=== PATIENT | male | born 1955 | race Caucasian/White ===

== ENCOUNTER 2017-09-07 08:36 | Inpatient (IN) | payer OTHER ==
[2017-09-07 10:39] VITALS: BMI 20.7
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
[2017-09-07] MEDS ORDERED: MAGNESIUM HYDROX 2400MG/30ML ORAL SUSPENSION 30 ML CUP PO PRN (15:18)
[2017-09-07] MEDS ORDERED: MAGNESIUM CITRATE 300 ML BOTTLE PO PRN (15:18)
[2017-09-07] MEDS ORDERED: IBUPROFEN 400 MG TABLET (FP) PO PRN (15:18)
[2017-09-07] MEDS ORDERED: guaiFENesin/D-METHORPHAN HB 10 ML UNIT-DOSE CUPS PO PRN (15:18)
[2017-09-07] MEDS ORDERED: P-EPHED 60MG/TRIPROLIDI 2.5MG TABLET PO PRN (15:18)
[2017-09-07] MEDS ORDERED: LOPERAMIDE HCL 2 MG CAPSULE PO PRN (15:18)
[2017-09-07] MEDS ORDERED: ACETAMINOPHEN 325 MG TABLET (FP) PO PRN (15:18)
[2017-09-07] MEDS ORDERED: MAG HYDROX/AL HYDROX/SIMETH 30 ML UNIT-DOSE CUP PO PRN (15:18)
[2017-09-07] MEDS ORDERED: MENTHOL/PHENOL 1 EACH UD MM PRN (15:18)
[2017-09-07] MEDS ORDERED: hydrOXYzine PAMOATE 25 MG CAPSULE (FP) PO PRN (15:18)
[2017-09-07] MEDS ORDERED: chlordiazePOXIDE HCL 25 MG CAPSULE PO PRN (15:18)
[2017-09-07] MEDS ORDERED: METHADONE HCL 10 MG TABLET (FOR DETOX USE ONLY) PO ONE ×2 (15:30→23:00)
[2017-09-07] MEDS ORDERED: chlordiazePOXIDE HCL 25 MG CAPSULE PO ONE (15:30)
[2017-09-07] MEDS: NICOTINE 21 MG/24 HOURS TOPICAL PATCH TD SCH (16:24)
[2017-09-07] MEDS: chlordiazePOXIDE HCL 25 MG CAPSULE PO SCH ×2 (16:25→22:19)
--- NOTE | 2017-09-07 17:09 | PN ---
[facility] Progress Note Note: Notified by BEATRIZ Sousa BP 165/90. Patient ordered clonidine 0.1mg BID but next dose due at 10pm. Will order Clonidine 0.1mg po now and continue to monitor clinically. Vital Signs Temperature 96.3 F L 09/07/17 16:02 Pulse Rate 62 09/07/17 16:02 Respiratory Rate 18 09/07/17 16:02 Blood Pressure 165/90 09/07/17 16:02 O2 Sat by Pulse Oximetry (%)
[2017-09-07] MEDS ORDERED: cloNIDine HCL 0.1 MG TABLET PO ONE (17:15)
[2017-09-07] MEDS: cloNIDine HCL 0.1 MG TABLET PO SCH (22:18)
[2017-09-07] MEDS: CYCLOBENZAPRINE HCL 10 MG TABLET (FP) PO PRN (22:18)
[2017-09-07] MEDS: THIAMINE HCL 100 MG TABLET (FP) PO SCH (22:18)
[2017-09-07 23:18] LABS: URINE APPEARANCE CLOUDY; URINE BILIRUBIN NEGATIVE (<2.0 mg/dL); URINE COLOR DKYELLOW; URINE GLUCOSE (UA) NEGATIVE (NEGATIVE); URINE KETONE NEGATIVE (NEGATIVE); URINE NITRITE NEGATIVE (NEGATIVE); URINE UROBILINOGEN NEGATIVE mg/dL (0.2-1.0)
[2017-09-07 23:24] LABS: URINE LEUK ESTERASE 2+ (NEGATIVE); URINE PROTEIN 1+ (NEGATIVE)
[2017-09-07 23:29] LABS: EPI CELLS RARE /HPF (FEW); URINE BACTERIA RARE /hpf (NONE SEEN); URINE MUCUS RARE
[2017-09-08] MEDS: chlordiazePOXIDE HCL 25 MG CAPSULE PO SCH ×4 (05:40→22:22)
--- NOTE | 2017-09-08 08:49 | EKG ---
Test Reason : Blood Pressure : / mmHG Vent. Rate : 064 BPM Atrial Rate : 064 BPM P-R Int : 140 ms QRS Dur : 090 ms QT Int : 416 ms P-R-T Axes : 051 -20 059 degrees QTc Int : 429 ms NORMAL SINUS RHYTHM CANNOT RULE OUT ANTERIOR INFARCT , AGE UNDETERMINED ABNORMAL ECG NO PREVIOUS ECGS AVAILABLE Confirmed by LONG SPANN MD ([id number]) on 09/08/2017 8:48:44 AM Referred By: Confirmed By:LONG SPANN MD
[2017-09-08] MEDS ORDERED: METHADONE HCL 10 MG TABLET (FOR DETOX USE ONLY) PO SCH (10:00)
[2017-09-08 10:05] LABS: HEMATOCRIT 50.5 % (35.4-49); HEMOGLOBIN 16.1 GM/dL (11.7-16.9); MCH 28.1 pg (25.7-33.7); MEAN CELL VOLUME 87.9 fl (80-96); MEAN PLT VOLUME 10.6 fl (7.5-11.1); PLATELET COUNT 181 K/MM3 (134-434); RBC 5.74 M/mm3 (4.00-5.60); WHITE BLOOD COUNT 10.2 K/mm3 (4.0-10.0)
[2017-09-08] MEDS: cloNIDine HCL 0.1 MG TABLET PO SCH ×2 (10:10→22:22)
[2017-09-08] MEDS: PRENATAL VITAMINS W/ FOLIC ACID TABLET (FP) PO SCH (10:10)
[2017-09-08] MEDS: NICOTINE 21 MG/24 HOURS TOPICAL PATCH TD SCH (10:10)
[2017-09-08 10:30] LABS: CHLORIDE 102 mmol/L (98-107); POTASSIUM 4.6 mmol/L (3.5-5.1); SODIUM 137 mmol/L (136-145)
[2017-09-08 10:44] LABS: ALBUMIN 3.7 g/dl (3.4-5.0); ALK PHOS 77 U/L (45-117); ANION GAP 8 (8-16); BILIRUBIN,TOTAL 0.5 mg/dL (0.2-1.0); BLOOD UREA NITROGEN 16 mg/dL (7-18); CALCIUM 8.9 mg/dL (8.5-10.1); CO2 27 mmol/L (21-32); CREATININE 1.1 mg/dL (0.7-1.3); GLUCOSE,RANDOM 107 mg/dL (74-106); SGOT/AST 23 U/L (15-37); SGPT/ALT 12 U/L (12-78)
[2017-09-08] MEDS ORDERED: NAPROXEN 375 MG TABLET (FP) PO ONE (11:00)
[2017-09-08] MEDS: amLODIPine BESYLATE 5 MG TABLET (FP) PO SCH (12:29)
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
--- NOTE | 2017-09-08 16:33 | PN ---
S CIWA - CIWA Score Nausea/Vomitin-No Nausea/No Vomiting Muscle Tremors: 2 Anxiety: 4-Mod. Anxious/Guarded Agitation: 3 Paroxysmal Sweats: 1-Minimal Palms Moist Orientation: 0-Oriented Tacttile Disturbances: 3-Moderate Itch/Numb/Burn Auditory Disturbances: 1-Very Mild Visual Disturbances: 2-Mild Sensitivity Headache: 0-None Present CIWA-Ar Total Score: 16 BHS COWS - Scale Resting Pulse: 2= [place] 101-120 Sweatin= No chills or Flushing Restless Observation: 1= Difficult to Sit Still Pupil Size: 0= Normal to Room Light Bone or Joint Aches: 4=Acute Joint/Muscle Pain Runny Nose/ Eye Tearin= Nasal Congestion GI Upset > 30mins: 0= None Tremor Observation of Outstretched Hands: 2= Slight Tremor Visible Yawning Observation: 1= 1-2x During Session Anxiety or Irritability: 2=Irritable/Anxious Goose Flesh Skin: 0=Smooth Skin COWS Score: 13 BHS Progress Note (SOAP) Subjective: Tremors, Anxious, Body Aches, Interrupted Sleep. Objective: PATIENT A & O X 3, OBSERVED AMBULATING ON UNIT. NO ACUTE DISTRESS. PATIENT DENIES CHEST PAIN. 09/08/17 16:30 Vital Signs Temperature 97.9 F 09/08/17 14:13 Pulse Rate 76 09/08/17 14:13 Respiratory Rate 18 09/08/17 14:13 Blood Pressure 141/80 09/08/17 14:13 O2 Sat by Pulse Oximetry (%) Laboratory Tests 09/07/17 09/08/17 09/08/17 18:48 05:30 05:30 WBC 10.2 H RBC 5.74 H Hgb 16.1 Hct 50.5 H MCV 87.9 MCH 28.1 MCHC 32.0 RDW 18.0 H Plt Count 181 MPV 10.6 Sodium 137 Potassium 4.6 Chloride 102 Carbon Dioxide 27 Anion Gap 8 BUN 16 Creatinine 1.1 Creat Clearance w eGFR > 60 Random Glucose 107 H Calcium 8.9 Total Bilirubin 0.5 AST 23 ALT 12 Alkaline Phosphatase 77 Total Protein 7.0 Albumin 3.7 Urine Color Dkyellow Urine Appearance Cloudy Urine pH 5.0 Ur Specific [place] 1.016 Urine Protein 1+ H Urine Glucose (UA) Negative Urine Ketones Negative Urine Blood Negative Urine Nitrite Negative Urine Bilirubin Negative Urine Urobilinogen Negative Ur Leukocyte Esterase 2+ H Urine WBC (Auto) 38 Urine RBC (Auto) 2 Ur Epithelial Cells Rare Urine Bacteria Rare Urine Mucus Rare RPR Titer 09/08/17 05:30 WBC RBC Hgb Hct MCV MCH MCHC RDW Plt Count MPV Sodium Potassium Chloride Carbon Dioxide Anion Gap BUN Creatinine Creat Clearance w eGFR Random Glucose Calcium Total Bilirubin AST ALT Alkaline Phosphatase Total Protein Albumin Urine Color Urine Appearance Urine pH Ur Specific [place] Urine Protein Urine Glucose (UA) Urine Ketones Urine Blood Urine Nitrite Urine Bilirubin Urine Urobilinogen Ur Leukocyte Esterase Urine WBC (Auto) Urine RBC (Auto) Ur Epithelial Cells Urine Bacteria Urine Mucus RPR Titer Nonreactive LABS NOTED. Assessment: 09/08/17 16:31 WITHDRAWAL SYMPTOMS. Plan: CONTINUE DETOX. NAPROXEN BID FOR BODY ACHES / PAIN. INCREASE DAILY PO FLUID INTAKE. REPEAT UA WITH URINE C + S FOR ADMISSION UA ABNORMALITIES.
--- NOTE | 2017-09-08 17:36 | EKG ---
Test Reason : Blood Pressure : / mmHG Vent. Rate : 050 BPM Atrial Rate : 050 BPM P-R Int : 164 ms QRS Dur : 092 ms QT Int : 458 ms P-R-T Axes : 049 -25 053 degrees QTc Int : 417 ms SINUS BRADYCARDIA SEPTAL INFARCT (CITED ON OR BEFORE 07-SEP-2017) ABNORMAL ECG WHEN COMPARED WITH ECG OF 07-SEP-2017 16:48, QUESTIONABLE CHANGE IN INITIAL FORCES OF SEPTAL LEADS Confirmed by MARIA INES DENNY, LONG ([id number]) on 09/08/2017 5:36:06 PM Referred By: Confirmed By:LONG SPANN MD
[2017-09-08] MEDS: NAPROXEN 375 MG TABLET (FP) PO SCH (17:45)
[2017-09-08] MEDS: THIAMINE HCL 100 MG TABLET (FP) PO SCH (22:22)
[2017-09-08 22:38] LABS: URINE APPEARANCE SLCLOUDY; URINE BILIRUBIN NEGATIVE (<2.0 mg/dL); URINE COLOR YELLOW; URINE GLUCOSE (UA) NEGATIVE (NEGATIVE); URINE KETONE NEGATIVE (NEGATIVE); URINE NITRITE POSITIVE (NEGATIVE); URINE PROTEIN NEGATIVE (NEGATIVE); URINE UROBILINOGEN NEGATIVE mg/dL (0.2-1.0)
[2017-09-08 22:39] LABS: URINE LEUK ESTERASE 3+ (NEGATIVE)
[2017-09-08 22:46] LABS: EPI CELLS RARE /HPF (FEW); URINE BACTERIA RARE /hpf (NONE SEEN); URINE HYALINE CAST 3 /lpf; URINE MUCUS RARE
[2017-09-09] MEDS: chlordiazePOXIDE HCL 25 MG CAPSULE PO SCH ×2 (05:47→10:24)
[2017-09-09] MEDS: PRENATAL VITAMINS W/ FOLIC ACID TABLET (FP) PO SCH (10:24)
[2017-09-09] MEDS: NAPROXEN 375 MG TABLET (FP) PO SCH ×2 (10:24→17:47)
[2017-09-09] MEDS: METHADONE HCL 5 MG TABLET (FOR DETOX USE ONLY) PO SCH (10:24)
[2017-09-09] MEDS: cloNIDine HCL 0.1 MG TABLET PO SCH ×2 (10:24→22:33)
[2017-09-09] MEDS: amLODIPine BESYLATE 5 MG TABLET (FP) PO SCH (10:25)
[2017-09-09] MEDS: NICOTINE 21 MG/24 HOURS TOPICAL PATCH TD SCH (10:25)
--- NOTE | 2017-09-09 17:30 | PN ---
[facility] CIWA - CIWA Score Nausea/Vomitin Muscle Tremors: 3 Anxiety: 3 Agitation: 3 Paroxysmal Sweats: 2 Orientation: 0-Oriented Tacttile Disturbances: 1-Very Mild Itch/Numbness Auditory Disturbances: 0-None Visual Disturbances: 0-None Headache: 1-Very Mild CIWA-Ar Total Score: 15 BHS COWS - Scale Resting Pulse: 1= [place] 81-100 Sweatin= Chills/Flushing Restless Observation: 3= Extraneous Movement Pupil Size: 1= Pupils >than Normal Bone or Joint Aches: 2= Severe Diffuse Aches Runny Nose/ Eye Tearin= Runny Nose/Eyes GI Upset > 30mins: 2= Nausea/Diarrhea Tremor Observation of Outstretched Hands: 2= Slight Tremor Visible Yawning Observation: 1= 1-2x During Session Anxiety or Irritability: 2=Irritable/Anxious Goose Flesh Skin: 0=Smooth Skin COWS Score: 17 S Progress Note (SOAP) Subjective: Feeling weak, sweating, interrupted sleep Objective: 09/09/17 17:26 Last Vital Signs Temp Pulse Resp BP Pulse Ox 98.2 F 88 20 123/68 09/09/17 15:22 09/09/17 15:22 09/09/17 15:22 09/09/17 15:22 Laboratory Tests 09/07/17 09/08/17 09/08/17 18:48 05:30 05:30 WBC 10.2 H RBC 5.74 H Hgb 16.1 Hct 50.5 H MCV 87.9 MCH 28.1 MCHC 32.0 RDW 18.0 H Plt Count 181 MPV 10.6 Sodium 137 Potassium 4.6 Chloride 102 Carbon Dioxide 27 Anion Gap 8 BUN 16 Creatinine 1.1 Creat Clearance w eGFR > 60 Random Glucose 107 H Calcium 8.9 Total Bilirubin 0.5 AST 23 ALT 12 Alkaline Phosphatase 77 Total Protein 7.0 Albumin 3.7 Urine Color Dkyellow Urine Appearance Cloudy Urine pH 5.0 Ur Specific [place] 1.016 Urine Protein 1+ H Urine Glucose (UA) Negative Urine Ketones Negative Urine Blood Negative Urine Nitrite Negative Urine Bilirubin Negative Urine Urobilinogen Negative Ur Leukocyte Esterase 2+ H Urine WBC (Auto) 38 Urine RBC (Auto) 2 Ur Epithelial Cells Rare Urine Bacteria Rare Hyaline Casts Urine Mucus Rare RPR Titer 09/08/17 09/08/17 05:30 22:20 WBC RBC Hgb Hct MCV MCH MCHC RDW Plt Count MPV Sodium Potassium Chloride Carbon Dioxide Anion Gap BUN Creatinine Creat Clearance w eGFR Random Glucose Calcium Total Bilirubin AST ALT Alkaline Phosphatase Total Protein Albumin Urine Color Yellow Urine Appearance Slcloudy Urine pH 6.0 Ur Specific [place] 1.017 Urine Protein Negative Urine Glucose (UA) Negative Urine Ketones Negative Urine Blood Negative Urine Nitrite Positive Urine Bilirubin Negative Urine Urobilinogen Negative Ur Leukocyte Esterase 3+ H Urine WBC (Auto) 41 Urine RBC (Auto) 3 Ur Epithelial Cells Rare Urine Bacteria Rare Hyaline Casts 3 Urine Mucus Rare RPR Titer Nonreactive Labs reviewed: UA shows + nitrite Assessment: 09/09/17 17:27 Withdrawal symptoms Noted with acute UTI Plan: Continue detox Acute UTI: encouraged PO water hydration, follow up on urine culture result ( pending), start ciprofloxacin 500mg PO q12 hr x 10 days, follow up with your PCP post discharge for further evaluation
[2017-09-09] MEDS: chlordiazePOXIDE 5 MG CAPSULE PO SCH ×2 (17:45→22:32)
[2017-09-09] MEDS: THIAMINE HCL 100 MG TABLET (FP) PO SCH (22:32)
[2017-09-09] MEDS: MELATONIN 5 MG TABLETS PO PRN (23:46)
[2017-09-10] MEDS: chlordiazePOXIDE 5 MG CAPSULE PO SCH ×2 (05:24→10:29)
[2017-09-10] MEDS: METHADONE HCL 5 MG TABLET (FOR DETOX USE ONLY) PO SCH (10:29)
[2017-09-10] MEDS: cloNIDine HCL 0.1 MG TABLET PO SCH ×2 (10:29→22:29)
[2017-09-10] MEDS: PRENATAL VITAMINS W/ FOLIC ACID TABLET (FP) PO SCH (10:30)
[2017-09-10] MEDS: NAPROXEN 375 MG TABLET (FP) PO SCH ×2 (10:30→18:27)
[2017-09-10] MEDS: NICOTINE 21 MG/24 HOURS TOPICAL PATCH TD SCH (10:30)
[2017-09-10] MEDS: amLODIPine BESYLATE 5 MG TABLET (FP) PO SCH (10:30)
[2017-09-10] MEDS: chlordiazePOXIDE HCL 10 MG CAPSULE PO SCH ×2 (18:27→22:28)
--- NOTE | 2017-09-10 18:30 | PN ---
BHS Progress Note (SOAP) Subjective: sleep disturbance sweats shakes Objective: 09/10/17 18:28 A & O x 3 Vital Signs Temperature 96.9 F L 09/10/17 18:25 Pulse Rate 49 L 09/10/17 18:25 Respiratory Rate 16 09/10/17 18:25 Blood Pressure 117/72 09/10/17 18:25 O2 Sat by Pulse Oximetry (%) Microbiology 09/08/17 19:57 Urine Culture - Preliminary Urine - Urine Clean Catch Lactose Fermenting Neg Bacilli UTI Assessment: 09/10/17 18:30 withdrawal sx Acute UTI Plan: continue antibiotics as ordered for UTI
[2017-09-10] MEDS: MELATONIN 5 MG TABLETS PO PRN (22:28)
[2017-09-10] MEDS: THIAMINE HCL 100 MG TABLET (FP) PO SCH (22:28)
[2017-09-11] MEDS: CYCLOBENZAPRINE HCL 10 MG TABLET (FP) PO PRN ×2 (05:13→22:09)
[2017-09-11] MEDS: chlordiazePOXIDE HCL 10 MG CAPSULE PO SCH ×2 (05:14→10:21)
[2017-09-11] MEDS ORDERED: METHADONE HCL 10 MG TABLET (FOR DETOX USE ONLY) PO SCH (10:00)
[2017-09-11] MEDS: PRENATAL VITAMINS W/ FOLIC ACID TABLET (FP) PO SCH (10:21)
[2017-09-11] MEDS: amLODIPine BESYLATE 5 MG TABLET (FP) PO SCH (10:21)
[2017-09-11] MEDS: NAPROXEN 375 MG TABLET (FP) PO SCH ×3 (10:21→17:17)
[2017-09-11] MEDS: cloNIDine HCL 0.1 MG TABLET PO SCH ×2 (10:21→22:09)
[2017-09-11] MEDS: NICOTINE 21 MG/24 HOURS TOPICAL PATCH TD SCH (10:29)
--- NOTE | 2017-09-11 21:34 | PN ---
BHS Progress Note (SOAP) Subjective: Sweating, Anxious. Objective: PATIENT A & O X 3, OBSERVED AMBULATING ON UNIT. NO ACUTE DISTRESS. 09/11/17 21:32 Vital Signs Temperature 97.0 F L 09/11/17 17:32 Pulse Rate 55 L 09/11/17 17:32 Respiratory Rate 16 09/11/17 17:32 Blood Pressure 118/81 09/11/17 17:32 O2 Sat by Pulse Oximetry (%) Laboratory Tests 09/07/17 09/08/17 09/08/17 18:48 05:30 05:30 WBC 10.2 H RBC 5.74 H Hgb 16.1 Hct 50.5 H MCV 87.9 MCH 28.1 MCHC 32.0 RDW 18.0 H Plt Count 181 MPV 10.6 Sodium 137 Potassium 4.6 Chloride 102 Carbon Dioxide 27 Anion Gap 8 BUN 16 Creatinine 1.1 Creat Clearance w eGFR > 60 Random Glucose 107 H Calcium 8.9 Total Bilirubin 0.5 AST 23 ALT 12 Alkaline Phosphatase 77 Total Protein 7.0 Albumin 3.7 Urine Color Dkyellow Urine Appearance Cloudy Urine pH 5.0 Ur Specific [place] 1.016 Urine Protein 1+ H Urine Glucose (UA) Negative Urine Ketones Negative Urine Blood Negative Urine Nitrite Negative Urine Bilirubin Negative Urine Urobilinogen Negative Ur Leukocyte Esterase 2+ H Urine WBC (Auto) 38 Urine RBC (Auto) 2 Ur Epithelial Cells Rare Urine Bacteria Rare Hyaline Casts Urine Mucus Rare RPR Titer 09/08/17 09/08/17 05:30 22:20 WBC RBC Hgb Hct MCV MCH MCHC RDW Plt Count MPV Sodium Potassium Chloride Carbon Dioxide Anion Gap BUN Creatinine Creat Clearance w eGFR Random Glucose Calcium Total Bilirubin AST ALT Alkaline Phosphatase Total Protein Albumin Urine Color Yellow Urine Appearance Slcloudy Urine pH 6.0 Ur Specific [place] 1.017 Urine Protein Negative Urine Glucose (UA) Negative Urine Ketones Negative Urine Blood Negative Urine Nitrite Positive Urine Bilirubin Negative Urine Urobilinogen Negative Ur Leukocyte Esterase 3+ H Urine WBC (Auto) 41 Urine RBC (Auto) 3 Ur Epithelial Cells Rare Urine Bacteria Rare Hyaline Casts 3 Urine Mucus Rare RPR Titer Nonreactive LABS NOTED. Assessment: 09/11/17 21:33 WITHDRAWAL SYMPTOMS. URINARY TRACT INFECTION. 09/11/17 21:33 Plan: CONTINUE DETOX. INCREASE DAILY PO FLUID INTAKE. CONTINUE LEVAQUIN FOR UTI. PATIENT SCHEDULED FOR D/C TOMORROW.
[2017-09-11] MEDS: THIAMINE HCL 100 MG TABLET (FP) PO SCH (22:09)
[2017-09-11] MEDS: MELATONIN 5 MG TABLETS PO PRN (22:33)
[2017-09-12] MEDS ORDERED: METHADONE HCL 5 MG TABLET (FOR DETOX USE ONLY) PO SCH (06:00)
[2017-09-12 09:38] VITALS: BP 137/86; PULSE 66; TEMP 96.6
--- NOTE | 2017-09-12 16:27 | PN ---
BHS Progress Note (SOAP) Subjective: Patient denies current Detox symptoms and reports that he feels well overall. Objective: PATIENT A & O X 3, OBSERVED AMBULATING ON UNIT. NO ACUTE DISTRESS. 09/12/17 16:26 Vital Signs Temperature 96.6 F L 09/12/17 09:38 Pulse Rate 66 09/12/17 09:38 Respiratory Rate 18 09/12/17 09:38 Blood Pressure 137/86 09/12/17 09:38 O2 Sat by Pulse Oximetry (%) Laboratory Tests 09/07/17 09/08/17 09/08/17 18:48 05:30 05:30 WBC 10.2 H RBC 5.74 H Hgb 16.1 Hct 50.5 H MCV 87.9 MCH 28.1 MCHC 32.0 RDW 18.0 H Plt Count 181 MPV 10.6 Sodium 137 Potassium 4.6 Chloride 102 Carbon Dioxide 27 Anion Gap 8 BUN 16 Creatinine 1.1 Creat Clearance w eGFR > 60 Random Glucose 107 H Calcium 8.9 Total Bilirubin 0.5 AST 23 ALT 12 Alkaline Phosphatase 77 Total Protein 7.0 Albumin 3.7 Urine Color Dkyellow Urine Appearance Cloudy Urine pH 5.0 Ur Specific [place] 1.016 Urine Protein 1+ H Urine Glucose (UA) Negative Urine Ketones Negative Urine Blood Negative Urine Nitrite Negative Urine Bilirubin Negative Urine Urobilinogen Negative Ur Leukocyte Esterase 2+ H Urine WBC (Auto) 38 Urine RBC (Auto) 2 Ur Epithelial Cells Rare Urine Bacteria Rare Hyaline Casts Urine Mucus Rare RPR Titer 09/08/17 09/08/17 05:30 22:20 WBC RBC Hgb Hct MCV MCH MCHC RDW Plt Count MPV Sodium Potassium Chloride Carbon Dioxide Anion Gap BUN Creatinine Creat Clearance w eGFR Random Glucose Calcium Total Bilirubin AST ALT Alkaline Phosphatase Total Protein Albumin Urine Color Yellow Urine Appearance Slcloudy Urine pH 6.0 Ur Specific [place] 1.017 Urine Protein Negative Urine Glucose (UA) Negative Urine Ketones Negative Urine Blood Negative Urine Nitrite Positive Urine Bilirubin Negative Urine Urobilinogen Negative Ur Leukocyte Esterase 3+ H Urine WBC (Auto) 41 Urine RBC (Auto) 3 Ur Epithelial Cells Rare Urine Bacteria Rare Hyaline Casts 3 Urine Mucus Rare RPR Titer Nonreactive LABS NOTED. Assessment: 09/12/17 16:26 COMPLETION OF DETOX REGIMEN. Plan: PATIENT SCHEDULED FOR DISCHARGE FROM DETOX UNIT TODAY.
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
== END 2017-09-12 09:30 | disposition home or self-care (01) | DRG 773 ==
LOC: YASAS 08:36 → Y3N 14:46
PROVIDERS: ADMIT Internal Medicine; ATTEND Internal Medicine
PROC: HZ2ZZZZ Detoxification Services for Substance Abuse Treatment (ICD-10-PCS; principal; 2017-09-07)
DX: F11.23 Opioid dependence with withdrawal (principal); F10.230 Alcohol dependence with withdrawal, uncomplicated; F14.20 Cocaine dependence, uncomplicated; F17.210 Nicotine dependence, cigarettes, uncomplicated; F51.05 Insomnia due to other mental disorder; K57.90 Diverticulosis of intestine, part unspecified, without perforation or abscess without bleeding; M06.9 Rheumatoid arthritis, unspecified; R76.11 Nonspecific reaction to tuberculin skin test without active tuberculosis; R55 Syncope and collapse; N30.00 Acute cystitis without hematuria; R63.4 Abnormal weight loss; Z68.20 Body mass index [BMI] 20.0-20.9, adult; Z87.828 Personal history of other (healed) physical injury and trauma
CPT/HCPCS: 36415; 71045-TC-FY; 80053; 81003; 81015; 85027; 86593; 87086; 87186; 93005; 93010; J0735